=== PATIENT | male | born 1950 | race Caucasian/White ===

== ENCOUNTER → 2021-02-21 | Outpatient (CLI) | payer MEDICARE ==
--- NOTE | 2021-02-21 08:56 | Diagnostic Imaging Report ---
INDICATION: PROCEDURE: Ultrasound abdomen complete. TECHNIQUE: Multiple real-time grayscale images were obtained of the abdomen in various projections. INDICATION: Thrombocytopenia There are no prior studies available for comparison. This exam is less than optimal due to the patient's body habitus. The liver is mildly enlarged and more echogenic than usually seen. This appearance does suggest fatty metamorphosis. There is no focal mass involving the liver and the biliary tree is not abnormally distended. The common bile duct was not well visualized. There is no evidence for cholelithiasis or acute cholecystitis and the common bile duct is not dilated. The spleen is prominent measuring 10.7 x 5.6 x 4.8 cm. The spleen does appear homogeneous. The kidneys are unremarkable for an acute abnormality. There is a 1.7 x 1.6 x 1.7 cm cyst along the inferior pole of the left kidney and a 4.8 x 5.3 x 5.0 cm cyst along the inferior pole of the right kidney. These cysts have a generally benign appearance. The aorta and inferior vena cava were obscured as was the pancreas. There is no mass or free fluid collection evident. IMPRESSION: 1. There is no acute abnormality of the visualized abdomen. 2. The liver is mildly enlarged and the echogenic appearance of the liver does suggest fatty metamorphosis. Dictated by: Dictated on workstation # [id number]
== END ==
LOC: RAD 07:00
PROVIDERS: ATTEND Nurse Practitioner Family
DX: D69.6 Thrombocytopenia, unspecified (principal); R16.0 Hepatomegaly, not elsewhere classified
CPT/HCPCS: 76700

== ENCOUNTER 2021-03-09 08:49 | Day surgery (SDC) | payer MEDICARE ==
[2021-03-09] VITALS (10 sets, daily range): BP systolic 112–142; BP diastolic 48–90
[~2021-03-09] VITALS: Wt 154.0 kg
[2021-03-09] MEDS ORDERED: NS IV 1000 ML 1,000 ML IV STA (09:28)
[2021-03-09] MEDS ORDERED: MIDAZOLAM 2 MG/2 ML (VERSED) VIAL IVP ONE (09:30)
[2021-03-09] MEDS ORDERED: LIDOCAINE 1% INJ 20 ML 20 ML VIAL INJ ONE (09:30)
[2021-03-09] MEDS ORDERED: fentaNYL INJ 100 MCG/2 ML AMP IVP ONE (09:30)
[2021-03-09 10:16] LABS: ABSOLUTE RETIC # 102 10e9/uL (24-90); BASOPHILS # (AUTO) 0.1 10^3/uL (0.0-0.1); BASOPHILS % (AUTO) 1 % (0-10); EOSINOPHILS # (AUTO) 0.2 10^3/uL (0.0-0.3); EOSINOPHILS % (AUTO) 2 % (0-10); HEMATOCRIT 44 % (40-54); HEMOGLOBIN 14.6 g/dL (13.3-17.7); LYMPHOCYTES # (AUTO) 1.6 10^3/uL (1.0-4.0); LYMPHOCYTES % (AUTO) 18 % (12-44); MEAN CORPUSCULAR HEMOGLOBIN 30 pg (25-34); MEAN CORPUSCULAR HGB CONC 33 g/dL (32-36); MEAN CORPUSCULAR VOLUME 91 fL (80-99); MEAN PLATELET VOLUME 11.3 fL (9.0-12.2); MONOCYTES # (AUTO) 0.7 10^3/uL (0.0-1.0); MONOCYTES % (AUTO) 7 % (0-12); NEUTROPHILS # (AUTO) 6.8 10^3/uL (1.8-7.8); NEUTROPHILS % (AUTO) 72 % (42-75); PLATELET COUNT 94 10^3/uL (130-400); RETICULOCYTE % 2.11 % (0.50-2.40); WHITE BLOOD COUNT 9.4 10^3/uL (4.3-11.0)
[2021-03-09 10:28] LABS: PROTHROMBIN TIME PATIENT 13.8 SEC (12.2-14.7)
[2021-03-09 10:35] LABS: BAND NEUTROPHILS 0 %; BASOPHILS % (MANUAL) 0 %; EOSINOPHILS % (MANUAL) 2 %; LYMPHOCYTES % (MANUAL) 12 %; MONOCYTES % (MANUAL) 5 %; NEUTROPHILS % (MANUAL) 81 %; RBC MORPH NORMAL
--- NOTE | 2021-03-09 11:31 | Pre-Op Note & Conscious Sedat ---
Pre-Operative Progress Note H&P Reviewed The H&P was reviewed, patient examined and no changes noted. Date H&P Reviewed: March 09, 2021 Time H&P Reviewed: 10:00 Pre-Op Diagnosis: thrombocyopenia Conscious Sedation Pre-Proced Time 10:00 ASA Score 2 For ASA 3 and 4: Consider anesthesia and medical clearance. Also, for patients with a history of failed moderate sedation consider anesthesia. Airway Lungs Heart ASA score ASA 1: a normal healthy patient ASA 2: a patient with a mild systemic disease (mid diabetes, controlled hypertension, obesity ASA 3: a patient with a severe systemic disease that limits activity (angina, COPD, prior Myocardial infarction) ASA 4: a patient with an incapacitating disease that is a constant threat to life (CHF, renal failure) ASA 5: a moribund patient not expected to survive 24 hrs. (ruptured aneurysm) ASA 6: a declared brain- patient whose organs are being harvested. For emergent operations, add the letter E after the classification Mallampati Classification Grade 2 Sedation Plan Analgesia, Amnesia, Plan communicated to team members, Discussed options with patient/fam, Discussed risks with patient/fam The patient is an appropriate candidate to undergo the planned procedure, sedation, and anesthesia. The patient immediately re-assessed prior to indication. DUNG REBOLLAR MD March 09, 2021 11:31
[2021-03-09] MEDS ORDERED: HYDROcodone/APAP 5 MG/325 MG (LORTAB) TAB PO PRN (11:45)
--- NOTE | 2021-03-09 12:39 | Diagnostic Imaging Report ---
INDICATION: Thrombocytopenia. The patient was brought to the CT suite, placed on table in the prone position. Axial imaging through the pelvis was performed to evaluate appropriate entry site. The procedure was performed utilizing conscious sedation with radiology nursing and constant patient monitoring. The patient was given a total of 100 mcg of fentanyl intravenously and 1 mg of Versed intravenously. Total procedure time was 13 minutes. The six-inch bone marrow needle was advanced from a posterior approach and placed with its tip along the posterior cortex of the right iliac bone. The needle was advanced through the cortex utilizing the bone marrow drill. Bone marrow aspirates were then obtained. Attempted bone marrow core was obtained however was very small. Therefore, the needle was repositioned and advanced into the marrow with the bone marrow drill. A second core specimen was obtained. Needle was removed and hemostasis was obtained using manual compression. The patient tolerated the procedure well and left the department in stable condition. IMPRESSION: Successful CT-guided bone marrow aspiration and core biopsy, utilizing conscious sedation. Dictated by: Dictated on workstation # [id number]
== END 2021-03-09 13:30 ==
LOC: SDC 08:49
PROVIDERS: ATTEND Internal Medicine Hematology & Oncology
DX: D69.59 Other secondary thrombocytopenia (principal); I10 Essential (primary) hypertension; E78.5 Hyperlipidemia, unspecified; E11.9 Type 2 diabetes mellitus without complications; Z79.84 Long term (current) use of oral hypoglycemic drugs; Z79.899 Other long term (current) drug therapy; Z90.89 Acquired absence of other organs
CPT/HCPCS: 36415; 38222; 77012; 85007; 85027; 85045; 85610; 85730; 99156; 99157

== ENCOUNTER 2021-03-22 10:04 | Outpatient (RCR) | payer MEDICARE ==
[2021-02-28 14:15] LABS: ABSOLUTE RETIC # 90 10e9/uL (24-90); BASOPHILS # (AUTO) 0.1 10^3/uL (0.0-0.1); BASOPHILS % (AUTO) 1 % (0-10); EOSINOPHILS # (AUTO) 0.2 10^3/uL (0.0-0.3); EOSINOPHILS % (AUTO) 2 % (0-10); HEMATOCRIT 46 % (40-54); HEMOGLOBIN 15.3 g/dL (13.3-17.7); LYMPHOCYTES # (AUTO) 1.8 10^3/uL (1.0-4.0); LYMPHOCYTES % (AUTO) 18 % (12-44); MEAN CORPUSCULAR HEMOGLOBIN 30 pg (25-34); MEAN CORPUSCULAR HGB CONC 33 g/dL (32-36); MEAN CORPUSCULAR VOLUME 91 fL (80-99); MEAN PLATELET VOLUME 11.2 fL (9.0-12.2); MONOCYTES % (AUTO) 10 % (0-12); NEUTROPHILS # (AUTO) 6.9 10^3/uL (1.8-7.8); NEUTROPHILS % (AUTO) 69 % (42-75); PLATELET COUNT 90 10^3/uL (130-400); RETICULOCYTE % 1.78 % (0.50-2.40)
[2021-02-28 14:46] LABS: LYMPHOCYTES % (MANUAL) 25 %; MONOCYTES % (MANUAL) 7 %; NEUTROPHILS % (MANUAL) 61 %; REACTIVE LYMPHOCYTES 7 %
[2021-02-28 14:47] LABS: STOMATOCYTES SLIGHT
== END 2021-05-05 10:36 | disposition home or self-care (01) ==
LOC: ONC 10:04
PROVIDERS: ATTEND Internal Medicine Hematology & Oncology
DX: D69.59 Other secondary thrombocytopenia (principal)
CPT/HCPCS: 82607; 82746; 85007; 85027; 85045; 85055; 86038; G0463; 99213; 99214

== ENCOUNTER 2021-05-03 12:53 | Outpatient (RCR) | payer MEDICARE | END 2021-05-03 13:35 | disposition home or self-care (01) | PROVIDERS: ATTEND Internal Medicine Hematology & Oncology | DX: M25.552 Pain in left hip (principal); M54.5 Low back pain; M25.562 Pain in left knee; I10 Essential (primary) hypertension; E11.9 Type 2 diabetes mellitus without complications ==

== ENCOUNTER → 2021-05-10 | Outpatient (CLI) | payer MEDICARE ==
--- NOTE | 2021-05-10 10:14 | Diagnostic Imaging Report ---
PROCEDURE: Ultrasound abdomen complete. TECHNIQUE: Multiple real-time grayscale images were obtained of the abdomen in various projections. INDICATION: Thrombocytopenia. FINDINGS: The spleen is normal in size and nonfocal measuring 11.2 x 5.9 x 5.5 cm. No subcapsular or perisplenic fluid. There is no abdominal ascites. The liver parenchyma is mildly echogenic. Mild fatty infiltration could not be excluded. Liver is upper limits of size measuring 18 cm. No focal liver lesion or mass. The pancreas itself could not be sonographically visualized. The visualized portions of the aorta are nonaneurysmal. Kidneys are normal in size and cortical thickness. There are bilateral simple benign anechoic unilocular cysts. In the right renal midpole, a cyst measured 6.5 cm, and in the upper pole of the left kidney, a cyst measured 3.1 cm. There is a lower pole cyst on the left measuring 1.8 cm. No echogenic or shadowing stone. No hydronephrosis. No perinephric fluid collection. There is no ascites. Portal vein is patent and showed a normal hepatopetal directional flow. The gallbladder appeared normal. No sludge, stone, or bile duct dilatation. IMPRESSION: 1. Likely mild hepatic steatosis and upper limits liver size without biliary pathology or focal mass. 2. Simple bilateral renal cortical cysts without hydronephrosis. 3. Normal-sized and nonfocal spleen. Dictated by: Dictated on workstation # [id number]
== END ==
LOC: RAD 08:47
PROVIDERS: ATTEND Nurse Practitioner Family
DX: N28.1 Cyst of kidney, acquired (principal); D69.6 Thrombocytopenia, unspecified
CPT/HCPCS: 76700

== ENCOUNTER → 2021-10-06 | Outpatient (CLI) | payer MEDICARE ==
[2021-10-06 14:23] LABS: BASOPHILS % (AUTO) 0 % (0-10); EOSINOPHILS # (AUTO) 0.2 10^3/uL (0.0-0.3); EOSINOPHILS % (AUTO) 2 % (0-10); HEMATOCRIT 45 % (40-54); HEMOGLOBIN 14.9 g/dL (13.3-17.7); LYMPHOCYTES # (AUTO) 1.6 X 10^3 (1.0-4.0); LYMPHOCYTES % (AUTO) 20 % (12-44); MEAN CORPUSCULAR HEMOGLOBIN 30 pg (25-34); MEAN CORPUSCULAR HGB CONC 33 g/dL (32-36); MEAN CORPUSCULAR VOLUME 90 fL (80-99); MEAN PLATELET VOLUME 9.4 fL (9.0-12.2); MONOCYTES # (AUTO) 0.6 X 10^3 (0.0-1.0); MONOCYTES % (AUTO) 8 % (0-12); NEUTROPHILS # (AUTO) 5.8 X 10^3 (1.8-7.8); NEUTROPHILS % (AUTO) 70 % (42-75); PLATELET COUNT 279 10^3/uL (130-400); WHITE BLOOD COUNT 8.4 10^3/uL (4.3-11.0)
== END ==
LOC: ONC 14:14
PROVIDERS: ATTEND Internal Medicine Hematology & Oncology
DX: D69.59 Other secondary thrombocytopenia (principal); R26.2 Difficulty in walking, not elsewhere classified
CPT/HCPCS: 85025; G0463; 99213

== ENCOUNTER 2022-09-19 05:42 | Outpatient (CLI) | payer MEDICARE ==
[~2022-09-19] VITALS: Ht 180.3 cm; Wt 131.8 kg
[2022-09-19] MEDS ORDERED: DAPA10TA PO (15:03)
[2022-09-19] MEDS ORDERED: PANT40TA52 PO (15:03)
[2022-09-19] MEDS ORDERED: AMLO-251 PO (15:03)
[2022-09-19] MEDS ORDERED: LEVO5TAB12 PO (15:03)
[2022-09-19] MEDS ORDERED: TIRZ5PEN SQ (15:03)
[2022-09-19] MEDS ORDERED: LOSA100T57 PO (15:03)
[2022-09-19] MEDS ORDERED: SIMV40TA25 PO (15:03)
[2022-09-19] MEDS ORDERED: HYDR12.56 PO (15:03)
== END 2022-09-19 16:02 | disposition home or self-care (01) ==
LOC: PREOP 05:42
PROVIDERS: ATTEND Specialist
DX: Z01.818 Encounter for other preprocedural examination (principal)

== ENCOUNTER 2022-09-21 09:03 | Day surgery (SDC) | payer MEDICARE ==
[~2022-09-21] VITALS: Ht 180.3 cm; Wt 131.8 kg
[~2022-09-21 09:03] MED LIST: AMLO-251 PO; DAPA10TA PO; HYDR12.56 PO; LEVO5TAB12 PO; LOSA100T57 PO; PANT40TA52 PO; SIMV40TA25 PO; TIRZ5PEN SQ
[2022-09-21 09:30] VITALS: BP 159/68
[2022-09-21] MEDS: TETRACAINE 0.5% OPHTH SOLN 4 ML BTL (SINGLE DOSE ONLY) OU PRN ×4 (09:36→09:50)
[2022-09-21] MEDS: TROPICAMIDE 1% OPH SOLN (MYDRIACYL) 15 ML BTL OP SCH ×3 (09:40→09:50)
[2022-09-21] MEDS: PHENYLEPHRINE 10% OPHTH (NEO-SYN) 5 ML BTL OU SCH ×3 (09:40→09:50)
[2022-09-21] MEDS ORDERED: MOXIFLOXACIN OPHTH SOLN 5 MG/ML 0.3 ML SYRINGE OP ONE (09:45)
[2022-09-21] MEDS ORDERED: TIMOLOL 0.5% (CATARACTS) 0.3 ML BTL OU PRN (09:45)
[2022-09-21] MEDS ORDERED: POVIDONE (BETADINE) OPHTH SOLN 5% 30 ML OP ONE (09:45)
[2022-09-21] MEDS ORDERED: MIDAZOLAM 2 MG/2 ML (VERSED) VIAL ONE (10:29)
--- NOTE | 2022-09-21 10:34 | Ophthalmologist Pre-Op Note ---
Pre-Operative Progress Note H&P Reviewed The H&P was reviewed, patient examined and no changes noted. Date H&P Reviewed: Sep 21, 2022 Time H&P Reviewed: 10:34 Pre-Op Dx Cataract, Right Eye LILIYA FISCHER MD Sep 21, 2022 10:34
--- NOTE | 2022-09-21 10:59 | Ophthalmology Operative Report ---
Cataract removal/placement IOL PREOPERATIVE DIAGNOSIS: Cataract Right Eye POSTOPERATIVE DIAGNOSIS: Cataract Right Eye PROCEDURE: Cataract removal and placement of posterior chamber implant, right eye SURGEON: Adi Fischer ANESTHESIA: Topical with sedation COMPLICATIONS: None ESTIMATED BLOOD LOSS: Minimal DESCRIPTION OF PROCEDURE: After proper informed consent was obtained, the patient, a 72 male, was taken to the Operating Room and the right eye was anesthetized with tetracaine. The right eye was then prepped and draped in the usual manner. A wire lid speculum was placed. A paracentesis was made at the left hand position. Preservative free lidocaine was injected into the anterior chamber followed by viscoelastic. A clear corneal incision was made in the temporal position. A capsulorrhexis was preformed and the central nuclear and cortical material were removed. The posterior capsule was polished and Jose Maria 18.0 AU00T0 IOL was placed into the capsular bag. The residual viscoelastic was aspirated and balanced saline solution was injected into the anterior chamber. Moxifloxacin was injected into the anterior chamber. The wound was checked and found to be water tight. The patient tolerated the procedure well without complications. ADI FISCHER MD Sep 21, 2022 10:59
[2022-09-21 11:02] VITALS: BP 138/70
[2022-09-21] MEDS ORDERED: acetaZOLAMIDE ER 500 MG CAP (DIAMOX SEQUELS) PO ONE (12:15)
--- NOTE | 2022-09-21 12:55 | Anesthesia-General Post-Op ---
MAC Patient Condition Mental Status/LOC: Same as Preop Cardiovascular: Satisfactory Nausea/Vomiting: Absent Respiratory: Satisfactory Pain: Controlled Complications: Absent Post Op Complications Complications None Follow Up Care/Instructions Patient Instructions None needed. Anesthesiology Discharge Order Discharge Order Patient is doing well, no complaints, stable vital signs, no apparent adverse anesthesia problems. No complications reported per nursing. ZO RAE CRNA Sep 21, 2022 12:55
== END 2022-09-21 11:02 ==
LOC: SDC 09:03
PROVIDERS: ATTEND Specialist
DX: H25.11 Age-related nuclear cataract, right eye (principal); F17.210 Nicotine dependence, cigarettes, uncomplicated
CPT/HCPCS: 66984; V2632

== ENCOUNTER 2022-10-05 09:57 | Day surgery (SDC) | payer MEDICARE ==
[~2022-10-05] VITALS: Ht 180.3 cm; Wt 131.8 kg
[2022-10-05] MEDS ORDERED: MOXIFLOXACIN OPHTH SOLN 5 MG/ML 0.3 ML SYRINGE OP ONE (10:00)
[2022-10-05] MEDS ORDERED: POVIDONE (BETADINE) OPHTH SOLN 5% 30 ML OP ONE (10:00)
[2022-10-05] MEDS ORDERED: TIMOLOL 0.5% (CATARACTS) 0.3 ML BTL OU PRN (10:00)
[2022-10-05] MEDS: TETRACAINE 0.5% OPHTH SOLN 4 ML BTL (SINGLE DOSE ONLY) OU PRN ×2 (10:10→10:30)
[2022-10-05 10:13] VITALS: BP 150/75
[2022-10-05] MEDS ORDERED: MIDAZOLAM 2 MG/2 ML (VERSED) VIAL ONE (10:16)
[2022-10-05] MEDS: TROPICAMIDE 1% OPH SOLN (MYDRIACYL) 15 ML BTL OP SCH ×3 (10:20→10:31)
[2022-10-05] MEDS: PHENYLEPHRINE 10% OPHTH (NEO-SYN) 5 ML BTL OU SCH ×3 (10:20→10:31)
--- NOTE | 2022-10-05 11:01 | Ophthalmologist Pre-Op Note ---
Pre-Operative Progress Note H&P Reviewed The H&P was reviewed, patient examined and no changes noted. Date H&P Reviewed: Oct 05, 2022 Time H&P Reviewed: 11:01 Pre-Op Dx Cataract, Left Eye LILIYA FISCHER MD Oct 05, 2022 11:01
--- NOTE | 2022-10-05 11:19 | Ophthalmology Operative Report ---
Cataract removal/placement IOL PREOPERATIVE DIAGNOSIS: Cataract Left Eye POSTOPERATIVE DIAGNOSIS: Cataract Left Eye PROCEDURE: Cataract removal and placement of posterior chamber implant, left eye SURGEON: Adi Fischer ANESTHESIA: Topical with sedation COMPLICATIONS: None ESTIMATED BLOOD LOSS: Minimal DESCRIPTION OF PROCEDURE: After proper informed consent was obtained, the patient, a 72 male, was taken to the Operating Room and the left eye was anesthetized with tetracaine. The left eye was then prepped and draped in the usual manner. A wire lid speculum was placed. A paracentesis was made at the left hand position. Preservative free lidocaine was injected into the anterior chamber followed by viscoelastic. A clear corneal incision was made in the temporal position. A capsulorrhexis was preformed and the central nuclear and cortical material were removed. The posterior capsule was polished and an Jose Maria 17.5 AU00T0 was placed into the capsular bag. The residual viscoelastic was aspirated and balanced saline solution was injected into the anterior chamber. Moxifloxacin was injected into the anterior chamber. The wound was checked and found to be water tight. The patient tolerated the procedure well without complications. ADI FISCHER MD Oct 05, 2022 11:19
[2022-10-05 11:27] VITALS: BP 141/68
[2022-10-05] MEDS ORDERED: acetaZOLAMIDE ER 500 MG CAP (DIAMOX SEQUELS) PO ONE (12:15)
--- NOTE | 2022-10-05 13:55 | Anesthesia-General Post-Op ---
MAC Patient Condition Mental Status/LOC: Same as Preop Cardiovascular: Satisfactory Nausea/Vomiting: Absent Respiratory: Satisfactory Pain: Controlled Complications: Absent Post Op Complications Complications None Follow Up Care/Instructions Patient Instructions None needed. Anesthesiology Discharge Order Discharge Order Patient is doing well, no complaints, stable vital signs, no apparent adverse anesthesia problems. No complications reported per nursing. TIMI RECINOS CRNA Oct 05, 2022 13:55
== END 2022-10-05 11:33 | disposition home or self-care (01) ==
LOC: SDC 09:57
PROVIDERS: ATTEND Specialist
DX: E11.36 Type 2 diabetes mellitus with diabetic cataract (principal); H25.9 Unspecified age-related cataract; F17.200 Nicotine dependence, unspecified, uncomplicated
CPT/HCPCS: 66984; 82947; V2632

== ENCOUNTER 2022-12-15 14:15 | Emergency (ER) | payer MEDICARE ==
[~2022-12-15] VITALS: Ht 177 cm; Wt 127.0 kg
[2022-12-15] MEDS ORDERED: HYDROcodone/APAP 5 MG/325 MG (LORTAB) TAB PO ONE (14:45)
--- NOTE | 2022-12-15 14:46 | ED Lower Extremity ---
General Chief Complaint: Lower Extremity Stated Complaint: FALL Source: patient Exam Limitations: no limitations History of Present Illness Date Seen by Provider: Dec 15, 2022 Time Seen by Provider: 14:30 Initial Comments Patient is a 72-year-old male with history of osteoarthritis who presents with an isolated right knee injury after tripping and falling from standing striking his right knee. The injury occurred just prior to ED arrival. Patient is unable to weight-bear secondary to pain. No other injury or complaints Onset: just prior to arrival Pain/Injury Location: right hip, right knee Method of Injury: other Modifying Factors: Improves With Other Allergies and Home Medications Allergies Coded Allergies: No Known Drug Allergies (Unverified , 09/19/22) Patient Home Medication List Home Medication List Reviewed: Yes Amlodipine Besylate (Amlodipine Besylate) 10 Mg Tablet, 10 MG PO DAILY, (Reported) Entered as Reported by: LONNIE STEVENS on 09/19/22 1503 Dapagliflozin Propanediol (Farxiga) 10 Mg Tablet, 10 MG PO DAILY, (Reported) Entered as Reported by: LONNIE STEVENS on 09/19/22 1503 Hydrochlorothiazide (Hydrochlorothiazide) 12.5 Mg Tablet, 12.5 MG PO DAILY, (Reported) Entered as Reported by: LONNIE STEVENS on 09/19/22 1503 Hydrocodone/Acetaminophen (Hydrocodone-Acetamin 5-325 mg) 5 Mg-325 Mg Tablet, 1 TAB PO Q4H PRN for PAIN-MODERATE (5-7) Prescribed by: GUILLERMO PARK on 12/15/22 1559 Levocetirizine Dihydrochloride (Levocetirizine Dihydrochloride) 5 Mg Tablet, 5 MG PO UD, (Reported) Entered as Reported by: LONNIE STEVENS on 09/19/22 1503 Losartan Potassium (Losartan Potassium) 100 Mg Tablet, 100 MG PO DAILY, (Reported) Entered as Reported by: LONNIE STEVENS on 09/19/22 1503 Pantoprazole Sodium (Pantoprazole Sodium) 40 Mg Tablet.dr, 40 MG PO DAILY, (Reported) Entered as Reported by: LONNIE STEVENS on 09/19/22 1503 Simvastatin (Simvastatin) 40 Mg Tablet, 40 MG PO UD, (Reported) Entered as Reported by: LONNIE STEVENS on 09/19/22 1503 Tirzepatide (Mounjaro) 5 Mg/0.5 Ml Pen.injctr, 5 MG SQ UD, (Reported) Entered as Reported by: LONNIE STEVENS on 09/19/22 7223 Review of Systems Constitutional: see HPI Musculoskeletal: see HPI Past Dpisrlq-Vmmdoi-Oheleb Hx Patient Social History Tobacco Use?: Yes Tobacco type used: Cigars Substance use?: Yes Substance type: Marijuana Alcohol Use?: No Physical Exam Vital Signs Vital Signs - First Documented 12/15/22 14:40 Temp 36.2 Pulse 16 Resp 16 B/P (MAP) 124/83 (97) Pulse Ox 100 O2 Delivery Room Air Capillary Refill : Height, Weight, BMI Height: '" Weight: lbs. oz. kg; BMI Method: General Appearance: WD/WN HEENT: PERRL/EOMI Neck: full range of motion, supple Cardiovascular: normal peripheral pulses Respiratory: lungs clear, normal breath sounds Gastrointestinal: non tender, soft Hips: right hip non-tender, right hip limited range of motion Legs: right leg non-tender; bilateral leg normal inspection Knees: right knee pain, right knee soft tissue tenderness, right knee swelling Ankles: bilateral ankle non-tender, bilateral ankle normal inspection, bilatera l ankle normal range of motion Neurologic/Psychiatric: no motor/sensory deficits, alert, normal mood/affect (Right hand/wrist: No obvious displaced fracture on preliminary ED review), oriented x 3 Skin: other (Can contusion, dorsum of right wrist) Progress/Results/Core Measures Results/Orders Lab Results Laboratory Tests Test 12/15/22 17:13 Range/Units White Blood Count 12.0 H 4.3-11.0 10^3/uL Red Blood Count 4.96 4.30-5.52 10^6/uL Hemoglobin 14.8 13.3-17.7 g/dL Hematocrit 44 40-54 % Mean Corpuscular Volume 88 80-99 fL Mean Corpuscular Hemoglobin 30 25-34 pg Mean Corpuscular Hemoglobin Concent 34 32-36 g/dL Red Cell Distribution Width 12.7 10.0-14.5 % Platelet Count 72 L 130-400 10^3/uL Mean Platelet Volume 11.7 9.0-12.2 fL Immature Granulocyte % (Auto) 0 % Neutrophils (%) (Auto) 83 H 42-75 % Lymphocytes (%) (Auto) 11 L 12-44 % Monocytes (%) (Auto) 5 0-12 % Eosinophils (%) (Auto) 0 0-10 % Basophils (%) (Auto) 0 0-10 % Neutrophils # (Auto) 10.0 H 1.8-7.8 10^3/uL Lymphocytes # (Auto) 1.3 1.0-4.0 10^3/uL Monocytes # (Auto) 0.5 0.0-1.0 10^3/uL Eosinophils # (Auto) 0.1 0.0-0.3 10^3/uL Basophils # (Auto) 0.1 0.0-0.1 10^3/uL Immature Granulocyte # (Auto) 0.1 0.0-0.1 10^3/uL Percent Immature Platelet Fraction 5.4 0.0-7.6 % Sodium Level 140 135-145 MMOL/L Potassium Level 4.0 3.6-5.0 MMOL/L Chloride Level 103 98-107 MMOL/L Carbon Dioxide Level 22 21-32 MMOL/L Anion Gap 15 H 5-14 MMOL/L Blood Urea Nitrogen 28 H 7-18 MG/DL Creatinine 1.25 0.60-1.30 MG/DL Estimat Glomerular Filtration Rate 62 BUN/Creatinine Ratio 22 Glucose Level 143 H 70-105 MG/DL Calcium Level 9.8 8.5-10.1 MG/DL Corrected Calcium 10.0 8.5-10.1 MG/DL Total Bilirubin 0.4 0.1-1.0 MG/DL Aspartate Amino Transf (AST/SGOT) 33 5-34 U/L Alanine Aminotransferase (ALT/SGPT) 30 0-55 U/L Alkaline Phosphatase 69 40-136 U/L Total Protein 7.0 6.4-8.2 GM/DL Albumin 3.8 3.2-4.5 GM/DL My Orders Orders - GUILLERMO PARK DO Knee 4 View Or > Left (12/15/22 14:40) Hydrocodone/Apap 5/325 Tablet (Lortab 5 (12/15/22 14:45) Ice: Apply To Affected Area (12/15/22 14:40) Knee Immobilizer (12/15/22 16:00) Pelvis With Right Hip 2-3 View (12/15/22 16:15) Femur 2 View Right (12/15/22 16:15) Cbc With Automated Diff (12/15/22 17:01) Comprehensive Metabolic Panel (12/15/22 17:01) Ekg Tracing (12/15/22 17:01) Chest 1 View Ap/Pa Only (12/15/22 17:01) Fentanyl Inj (Sublimaze Injection) (12/15/22 17:30) Ondansetron Injection (Zofran Injectio (12/15/22 17:30) Morphine Injection (Morphine Injection (12/15/22 18:00) Medications Given in ED Current Medications Medications Dose Ordered Sig/Ifeanyi Route Start Time Stop Time Status Last Admin Dose Admin Acetaminophen/ Hydrocodone Bitart 1 ea ONCE ONCE PO 12/15/22 14:45 12/15/22 14:46 DC 12/15/22 14:52 1 EA Fentanyl Citrate 50 mcg ONCE ONCE IVP 12/15/22 17:30 12/15/22 17:31 DC 12/15/22 17:30 50 MCG Ondansetron HCl 4 mg ONCE ONCE IVP 12/15/22 17:30 12/15/22 17:31 DC 12/15/22 17:29 4 MG Vital Signs/I&O 12/15/22 14:40 Temp 36.2 Pulse 16 Resp 16 B/P (MAP) 124/83 (97) Pulse Ox 100 O2 Delivery Room Air Departure Communication (Admissions) Right knee x-ray: No acute findings per radiology report Right hip/pelvis: Subcapital hip fracture Chest x-ray: No acute cardiopulmonary disease per radiology report EKG: Second-degree heart block, type I Fall from standing. With isolated lower extremity injury. Right knee injury without evidence of fracture. Right hip pain with subcapital hip fracture. Incidental finding of type II heart block. Blood pressure heart rate stable. Patient maintained on monitors. No orthopedic coverage at [facility]. Patient accepted to [facility] ER per ER attending. Impression Primary Impression: Subcapital fracture of right hip Additional Impression: Second degree heart block Disposition: XF S[facility]-TRM HOSP Condition: Stable Transfer Transfer Reason: Exceeds level of care Time Spoke to Accepting Phy: 18:17 Transfer Progress Notes Patient accepted to [facility] emergency department Departure-Patient Inst. Referrals: [facility] (PCP/Family) Primary Care Physician Scripts Hydrocodone/Acetaminophen (Hydrocodone-Acetamin 5-325 mg) 5 Mg-325 Mg Tablet 1 TAB PO Q4H PRN for PAIN-MODERATE (5-7), #10 TAB Prov: GUILLERMO PARK DO 12/15/22 GUILLERMO PARK DO Dec 15, 2022 14:46
--- NOTE | 2022-12-15 15:41 | Diagnostic Imaging Report ---
CLINICAL HISTORY: Fall. Left knee pain. COMPARISON: None. TECHNIQUE: 4 views of the left knee. FINDINGS: There is no acute fracture or dislocation of the left knee. Alignment is anatomic. Degenerative changes are present in the left knee with joint space narrowing and marginal osteophytes. No focal osseous lesion. No large joint effusion. IMPRESSION: 1. No acute fracture or dislocation in the left knee. 2. Moderate osteoarthritis in the left knee. Dictated by: Dictated on workstation # [id number]
[2022-12-15] MEDS ORDERED: ACHD5005 PO (15:59)
--- NOTE | 2022-12-15 17:10 | Diagnostic Imaging Report ---
EXAM: Pelvis with right hip 2-3 view INDICATION: Trauma. Right hip pain. COMPARISON: None. FINDINGS: Mildly displaced right subcapital hip fracture. Pelvis appears intact. Soft tissue shadows are unremarkable. IMPRESSION: Mildly displaced right subcapital hip fracture. Dictated by: Dictated on workstation # [id number]
--- NOTE | 2022-12-15 17:11 | Diagnostic Imaging Report ---
EXAM: Femur 2 view right INDICATION: Trauma. Fall. Right hip pain. COMPARISON: Right hip and pelvis radiographs also performed today. FINDINGS: Mildly displaced right subcapital hip fracture. The right femur is otherwise intact. Soft tissue shadows are unremarkable. Visualized pelvis is intact. IMPRESSION: Mildly displaced right subcapital hip fracture. Dictated by: Dictated on workstation # [id number]
[2022-12-15 17:17] LABS: BASOPHILS # (AUTO) 0.1 10^3/uL (0.0-0.1); BASOPHILS % (AUTO) 0 % (0-10); EOSINOPHILS # (AUTO) 0.1 10^3/uL (0.0-0.3); EOSINOPHILS % (AUTO) 0 % (0-10); HEMATOCRIT 44 % (40-54); HEMOGLOBIN 14.8 g/dL (13.3-17.7); LYMPHOCYTES # (AUTO) 1.3 10^3/uL (1.0-4.0); LYMPHOCYTES % (AUTO) 11 % (12-44); MEAN CORPUSCULAR HEMOGLOBIN 30 pg (25-34); MEAN CORPUSCULAR HGB CONC 34 g/dL (32-36); MEAN CORPUSCULAR VOLUME 88 fL (80-99); MEAN PLATELET VOLUME 11.7 fL (9.0-12.2); MONOCYTES # (AUTO) 0.5 10^3/uL (0.0-1.0); MONOCYTES % (AUTO) 5 % (0-12); NEUTROPHILS % (AUTO) 83 % (42-75); PLATELET COUNT 72 10^3/uL (130-400)
[2022-12-15] MEDS ORDERED: ONDANSETRON 4 MG/2 ML (SDV) Z0FRAN IVP ONE (17:30)
[2022-12-15] MEDS ORDERED: fentaNYL INJ 100 MCG/2 ML AMP IVP ONE (17:30)
--- NOTE | 2022-12-15 17:33 | Diagnostic Imaging Report ---
EXAM: Chest 1 view AP/PA only INDICATION: Hip fracture. COMPARISON: None. FINDINGS: Low lung volumes accentuate the heart size and pulmonary vascularity. Lungs are clear. No pleural effusion or pneumothorax. No acute osseous finding. IMPRESSION: No acute cardiopulmonary findings. Dictated by: Dictated on workstation # [id number]
[2022-12-15 17:34] LABS: ALBUMIN 3.8 GM/DL (3.2-4.5); BILIRUBIN,TOTAL 0.4 MG/DL (0.1-1.0); CALCIUM 9.8 MG/DL (8.5-10.1); CREATININE SERUM 1.25 MG/DL (0.60-1.30)
[2022-12-15] MEDS ORDERED: morphine INJ 10 MG/ML 1ML (SYR OR VIAL) IVP STA (18:00)
[2022-12-15 18:30] LABS: MAGNESIUM 2.2 MG/DL (1.6-2.4)
[2022-12-15] MEDS ORDERED: KETOROLAC 30 MG/ML VIAL IVP ONE (18:30)
[2022-12-15] MEDS ORDERED: morphine INJ 10 MG/ML 1ML (SYR OR VIAL) IVP ONE (19:45)
[2022-12-16 00:31] VITALS: BP 126/62
== END 2022-12-16 00:31 | disposition short-term general hospital (02) ==
LOC: EDUNIT# 14:15 → ER FS 14:16
DX: S72.011A Unspecified intracapsular fracture of right femur, initial encounter for closed fracture (principal); I44.1 Atrioventricular block, second degree; M25.561 Pain in right knee; F17.290 Nicotine dependence, other tobacco product, uncomplicated; Z28.310 Unvaccinated for COVID-19; W01.198A Fall on same level from slipping, tripping and stumbling with subsequent striking against other object, initial encounter
CPT/HCPCS: 36415; 51702; 71045; 73502; 73552; 73564; 80053; 83735; 84443; 84484; 85025; 93005